=== PATIENT | male | born 1955 | race Caucasian/White ===

== ENCOUNTER 2017-04-28 13:00 | Outpatient (RCR) | payer BC, SELFPAY | END 2017-04-28 23:59 | LOC: PT 13:00 | PROVIDERS: PCP Physician Assistant; Visit Provider Internal Medicine | DX: Z95.5 Presence of coronary angioplasty implant and graft (principal); R55 Syncope and collapse | CPT/HCPCS: 93798 ==

== ENCOUNTER → 2017-05-17 14:25 | Outpatient (CLI) | payer BC, SELFPAY ==
[2017-05-17 18:50] LABS: Prostate Specific Ag, Diagnost 3.31 ng/mL (0.0-4.0)
== END ==
PROVIDERS: PCP Physician Assistant; Visit Provider Urology
DX: N40.1 Benign prostatic hyperplasia with lower urinary tract symptoms (principal); N13.8 Other obstructive and reflux uropathy
CPT/HCPCS: 36415; 84153

== ENCOUNTER → 2018-01-02 12:04 | Outpatient (CLI) | payer BC, SELFPAY ==
--- NOTE | 2018-01-02 12:08 | XR_ITS ---
XR chest 2V HISTORY: ITS.REASON: tobacco use, dyspnea ORDERING PHYSICIAN: Anthony Gonzalez MD PATIENT AGE: 62 years COMPARISON: 02/22/2017 FINDINGS: The cardiomediastinal silhouette and pulmonary vascularity are within normal limits. Hyperinflation with attenuation of the peripheral pulmonary vessels consistent with obstructive chronic bronchitis. No lobar consolidation or collapse.. Old right fifth rib fracture. No acute bony findings.. IMPRESSION: COPD, no change with no acute finding
== END ==
PROVIDERS: PCP Physician Assistant; Visit Provider Internal Medicine
DX: R06.00 Dyspnea, unspecified (principal); J44.9 Chronic obstructive pulmonary disease, unspecified; F17.200 Nicotine dependence, unspecified, uncomplicated; E78.4 Other hyperlipidemia; I11.9 Hypertensive heart disease without heart failure; I25.10 Atherosclerotic heart disease of native coronary artery without angina pectoris; I65.29 Occlusion and stenosis of unspecified carotid artery
CPT/HCPCS: 71046

== ENCOUNTER → 2018-05-10 12:16 | Outpatient (CLI) | payer BC, SELFPAY ==
[2018-05-11 17:19] LABS: PSA, Free 0.29 ng/mL; Prostate Specific Ag 1.3 ng/mL (0.0-4.0)
== END ==
PROVIDERS: Visit Provider Urology
DX: R97.20 Elevated prostate specific antigen [PSA] (principal); R39.89 Other symptoms and signs involving the genitourinary system
CPT/HCPCS: 36415; 84153; 84154

== ENCOUNTER → 2018-08-14 12:58 | Outpatient (CLI) | payer BC, SELFPAY ==
--- NOTE | 2018-08-14 13:00 | CI_ITS ---
Cerebrovascular Exam Indications: 433.10 Occlusion/stenosis of carotid artery without cerebral infarction. IMPRESSIONS 1. The bilateral vertebral arteries are patent with normal antegrade flow. 2. Study suggests less than 20% stenosis involving the right internal carotid artery and the left internal carotid artery. No change from the study of 03-Aug-2015. Carotid duplex study. Complete study and Doppler flow study including spectral analysis, color and fontenot scale imaging. Location: Vascular laboratory. Patient status: Outpatient. Tables: Arterial flow: + +--------+--------+ Location V sylalita V ed + +--------+--------+ Left CCA - distal 58.1cm/s 22cm/s + +--------+--------+ Left CCA - proximal 73.9cm/s 22cm/s + +--------+--------+ Left ICA - distal 52.6cm/s 22.8cm/s + +--------+--------+ Left ICA - mid 40.1cm/s 18.1cm/s + +--------+--------+ Left ICA - proximal 55.8cm/s 15.7cm/s + +--------+--------+ Left ECA 62.9cm/s -------- + +--------+--------+ Left vertebral 29.1cm/s -------- + +--------+--------+ Right CCA - distal 76.2cm/s 29.1cm/s + +--------+--------+ Right CCA - proximal 70.7cm/s 21.2cm/s + +--------+--------+ Right ICA - distal 58.9cm/s 26.7cm/s + +--------+--------+ Right ICA - mid 43.2cm/s 20.4cm/s + +--------+--------+ Right ICA - proximal 46.4cm/s 17.3cm/s + +--------+--------+ Right ECA 58.1cm/s -------- + +--------+--------+ Right vertebral 28.3cm/s -------- + +--------+--------+ Velocity ratios: + + + + + + Right, V sys Right, V ed Left, V sys Left, V ed + + + + + + Max ICA/dist CCA 0.77 0.92 0.96 1.04 + + + + + + (Report amended ) Electronically signed by: Sahq Le [id number]
== END ==
PROVIDERS: PCP Family Medicine; Visit Provider Internal Medicine
DX: E78.5 Hyperlipidemia, unspecified (principal); I11.9 Hypertensive heart disease without heart failure; I25.10 Atherosclerotic heart disease of native coronary artery without angina pectoris; I65.29 Occlusion and stenosis of unspecified carotid artery; J44.9 Chronic obstructive pulmonary disease, unspecified; F17.200 Nicotine dependence, unspecified, uncomplicated
CPT/HCPCS: 93880

== ENCOUNTER → 2019-01-15 09:30 | Outpatient (CLI) | payer BC, SELFPAY ==
[2019-01-15 10:09] LABS: INR 0.96 (0.9-1.1)
[2019-01-15 10:36] LABS: Alanine Aminotransferase 89 U/L (12-78); Albumin Level 3.6 gm/dL (3.4-5.0); Alkaline Phosphatase 103 U/L (46-116); Aspartate Amino Transferase 59 U/L (15-37); Bilirubin,Direct 0.3 mg/dL (0.0-0.2); Bilirubin,Indirect 0.5 mg/dL (0.0-0.9); Bilirubin,Total 0.8 mg/dL (0.2-1.0); Chol/HDL Ratio 1.5 (1-3.5); Cholesterol 98 mg/dL (140-200); HDL Cholesterol 67 mg/dL (27-67); LDL Cholesterol 24 mg/dL (0-130); Total Protein,Serum 6.6 gm/dL (6.4-8.2); Triglycerides 36 mg/dL (30-200); VLDL Cholesterol 7 mg/dL (0-40)
== END ==
PROVIDERS: Visit Provider Physician Assistant
DX: E78.5 Hyperlipidemia, unspecified (principal); I25.10 Atherosclerotic heart disease of native coronary artery without angina pectoris; I65.29 Occlusion and stenosis of unspecified carotid artery; R58 Hemorrhage, not elsewhere classified
CPT/HCPCS: 36415; 80061; 80076; 85610

== ENCOUNTER → 2019-05-28 12:12 | Outpatient (CLI) | payer BC, SELFPAY ==
[2019-05-28 14:03] LABS: Prostate Specific Ag Screen 1.7 ng/mL (0.0-4.0)
== END ==
PROVIDERS: Visit Provider Urology
DX: Z12.5 Encounter for screening for malignant neoplasm of prostate (principal)
CPT/HCPCS: 36415; G0103

== ENCOUNTER → 2020-01-07 13:45 | Outpatient (CLI) | payer BC, SELFPAY ==
--- NOTE | 2020-01-07 13:53 | XR_ITS ---
PROCEDURE: XR CHEST 2V CLINICAL HISTORY: dyspnea Shortness of air, smoker COMPARISON: CR CXR CHEST(2 VIEWS-NOT PORTABLE) from 04/14/2014 CR CXR CHEST(2 VIEWS-NOT PORTABLE) from 06/25/2015 CR CXR CHEST(2 VIEWS-NOT PORTABLE) from 02/22/2017 CR CXR2V XR chest 2V from 01/02/2018 FINDINGS: The cardiomediastinal silhouette and pulmonary vascularity are within normal limits. COPD. No lobar consolidation or collapse. Degenerative changes thoracic spine IMPRESSION: No change with no acute finding Dictated by: Shaq Le MD 01/07/2020 18:02 Shaq Le MD in [facility] 01/07/2020 18:02
== END ==
PROVIDERS: PCP Nurse Practitioner Family; Visit Provider Physician Assistant
DX: J44.9 Chronic obstructive pulmonary disease, unspecified (principal); F17.200 Nicotine dependence, unspecified, uncomplicated; I25.10 Atherosclerotic heart disease of native coronary artery without angina pectoris; I65.23 Occlusion and stenosis of bilateral carotid arteries; R06.09 Other forms of dyspnea; E78.2 Mixed hyperlipidemia; I11.9 Hypertensive heart disease without heart failure
CPT/HCPCS: 71046

== ENCOUNTER → 2020-07-07 13:52 | Outpatient (CLI) | payer BC, SELFPAY ==
[2020-07-07 16:55] LABS: Prostate Specific Ag Screen 1.3 ng/ml (0.0-4.0)
== END ==
PROVIDERS: Visit Provider Urology
DX: Z12.5 Encounter for screening for malignant neoplasm of prostate (principal)
CPT/HCPCS: 36415; G0103

== ENCOUNTER → 2021-02-10 11:24 | Outpatient (CLI) | payer BC, SELFPAY ==
--- NOTE | 2021-02-10 11:33 | CA_ITS ---
APPROVED REPORT EXAM: Comprehensive 2D, Doppler, and color-flow Echocardiogram Final Rail Cutter: Lyudmila Purcell CRT Ht: 5 ft 8 in Wt: 184lbs BSA: 1.97 BP: 116/78 mmHg Indications: COPD, Shortness of Breath, Fatigue, CAD, Hyperlipidemia, Hypertension/HDD, smoker, old SD, stent, smoker 2D Dimensions LVOT 1.98 cm (M/F) 1.5-2.5 LA Volume 28.70 mL LA Volume Index 14.60 mL/m2 (M/F) 16-34 M-Mode Dimensions RVDd 2.09 cm (0.9-2.6) LA Diam 3.07 cm (1.9-4.0) LVDd 4.39 cm (3.5-5.7) Ao Diam 4.30 cm (2.0-3.7) LVDs 2.62 cm (3.5-5.7) IVSd 2.01 cm (0.6-1.1) PWd 0.89 cm (0.6-1.1) EF (Teich) 71.20% FS 40.30% EDV (Teich) 87.20 mL TAPSE 2.22 (<1.7) ESV (Teich) 25.10 mL LV Diastology E Decel Time 263.00 (160-240 msec) E/A Ratio 0.96 MED E' 9.40 (< 7 cm/sec) MED A' 10.70 cm/s E'/MED E' Ratio 7.41 (>14) LAT E' 10.40 (<10 cm/sec) LAT A' 12.60 cm/s E/LAT E' Ratio 6.70 (>14) Aortic Valve AI PHT 413.00 ms AO Peak GR. 6.80 mmHg Mitral Valve MV A Velocity 73.00 (40-130 cm/s) E/A Ratio 0.96 MV Decel. Time 263.00 (160-240 ms) Pulmonary Valve PV Peak Velocity 162.00 (50-150 cm/s) Tricuspid Valve TR P. Velocity 139.00 cm/s RAP Estimate 10.00 mmHg RVSP 17.80 mmHg Left Ventricle Technically difficult study because of the patient factors and poor acoustic windows. Left atrium is mildly enlarged, left ventricle is normal size, mild concentric left ventricular hypertrophy, visually estimated ejection fraction 55% with no regional wall motion abnormality, Doppler evidence of impaired LV relaxation seen. Right Ventricle Right atrium and right ventricle are normal size and contractility. Aortic Valve Aortic valve is minimally thickened and fibrosed there is no aortic stenosis or aortic insufficiency. Mitral Valve Mitral valve grossly normal, there is trace mitral regurgitation. Tricuspid Valve Tricuspid valve grossly normal, there is trace tricuspid regurgitation, tricuspid regurgitation jet velocity is inadequate for calculation of the right ventricular systolic pressure. Pulmonic Valve Pulmonic valve is poorly visualized. Great Vessels Aortic root is normal size. Inferior vena cava is normal size with normal inspiratory collapse. Pericardium No significant pericardial effusion noted. Conclusion 1. Mildly enlarged left atrium, normal left ventricular size, mild concentric left ventricular hypertrophy, visually estimated ejection fraction 55% with no regional wall motion abnormality, Doppler evidence of impaired LV relaxation seen. 2. Trace mitral and tricuspid regurgitation. 3. No significant pericardial effusion noted 4. Inferior vena cava is normal size with normal inspiratory collapse. Electronically signed by : Hari Montiel MD 02/11/2021 15:31:44
[2021-02-10 12:46] LABS: Alanine Aminotransferase 65 U/L (12-78); Albumin Level 4.1 g/dl (3.5-5.0); Alkaline Phosphatase 114 U/L (38-126); Aspartate Amino Transferase 61 U/L (17-59); Bilirubin,Direct 0.5 mg/dl (0.0-0.4); Bilirubin,Indirect 0.6 mg/dL (0.0-0.9); Bilirubin,Total 1.1 mg/dl (0.2-1.3); Bilirubin,Unconjugated 0.5 mg/dL (0.0-1.1); Chol/HDL Ratio 1.3 (1-3.5); Cholesterol 111 mg/dl (140-200); HDL Cholesterol 83 mg/dl (40-60); Total Protein,Serum 6.9 g/dl (6.3-8.2); Triglycerides 59 mg/dl (30-150); VLDL Cholesterol 12 mg/dL (0-40)
[2021-02-10 13:01] LABS: Direct LDL Cholesterol < 30.00 mg/dL (100-129)
== END ==
PROVIDERS: PCP Nurse Practitioner Family; Visit Provider Nurse Practitioner Family
DX: R06.02 Shortness of breath (principal); E78.2 Mixed hyperlipidemia
CPT/HCPCS: 36415; 80061; 80076; 93306

== ENCOUNTER 2023-02-08 11:04 | Emergency (ER) | payer BC, SELFPAY ==
[2023-02-08 11:06] VITALS: BP 133/83; PULSE 80; RESP 18; TEMP 36.8; O2SAT 96; BMI 26.6
[2023-02-08 11:16] LABS: Microscopic, Urine URINE MICROSCOPIC (MICROSCOPIC)
[2023-02-08 11:19] LABS: Blood, Urine 3+ (Negative); Glucose,Urine (UA) TRACE (Negative); Ketones,Urine TRACE (Negative); Leukocyte Esterase,Urine TRACE (Negative); Nitrate,Urine POSITIVE (Negative); PH,Urine 6.5 (5.0-8.5); Protein,Urine 3+ (Negative); Specific Gravity, Urine 1.025 (1.005-1.030)
--- NOTE | 2023-02-08 11:20 | PC.NURSE ---
DR DANG AT BEDSIDE
[2023-02-08 11:25] LABS: Bilirubin,Urine 1+ (Negative)
[2023-02-08 11:26] LABS: Appearance,Urine Cloudy (Clear); Color,Urine Amber (Yellow)
--- NOTE | 2023-02-08 11:29 | [facility].EDGENADL ---
Discharge Plan Disposition Patient Disposition: Home, Self-Care Prescriptions Prescriptions: New cefdinir 300 mg capsule 300 mg PO BID 10 Days Qty: 20 0RF No Action tamsulosin [Flomax] 0.4 mg capsule,extended release 24hr 0.4 mg PO DAILY nitroglycerin 0.4 mg tablet, sublingual 0.4 mg SUBLINGUAL Q5M PRN (Reason: chest pain) Qty: 25 0RF aspirin [Adult Aspirin Regimen] 81 mg tablet,delayed release (DR/EC) 81 mg PO QDAY Qty: 90 3RF atorvastatin 40 mg tablet See Rx Instructions .ROUTE .COMPLEX Qty: 90 5RF Dose Instruction: Take 1 tablet by mouth once daily Rx Instructions: Take 1 tablet by mouth once daily metoprolol tartrate 25 mg tablet See Rx Instructions .ROUTE .COMPLEX Qty: 180 1RF Dose Instruction: Take 1 tablet by mouth twice daily Rx Instructions: Take 1 tablet by mouth twice daily lisinopril 5 mg tablet See Rx Instructions .ROUTE .COMPLEX Qty: 90 1RF Dose Instruction: Take 1 tablet by mouth once daily Rx Instructions: Take 1 tablet by mouth once daily Referrals Follow up/Referrals: Guy Haq MD [Primary Care Provider] - See instructions Activity Restrictions/Add. Instructions Additional Instructions/Restrictions: Call your family doctor to establish care for this visit to the emergency department and schedule follow-up within 48 hours to ensure improvement. If you have any worsening of your condition or any other concerning signs or symptoms, return to the emergency department or your primary care doctor for further evaluation. Cefdinir twice daily for 10 days Clinical Impressions Clinical Impression: Urinary tract infection Qualifiers: Urinary tract infection type: site unspecified Hematuria presence: with hematuria Qualified Code(s): N39.0 - Urinary tract infection, site not specified Instructions Patient Instructions: DI for Urinary Tract Infection (UTI), DI for Urinary Tract Infection in Children Discharge ED Provider: Bhavin Vigil General Adult HPI General Chief complaint: Urogenital-Male Stated complaint: BLOOD IN URINE Time Seen by Provider: 02/08/23 11:06 Mode of Arrival: Ambulatory Source of Information: Patient Limitations: No Limitations Description of Symptoms (Recalled from ER Triage Doc. by RN): PT REPORTS FREQUENT URINATION X 2-3 DAYS. BLOOD IN URINE THIS AM. DENIES FEVER OR CHILLS. History of Present Illness HPI narrative: 67-year-old male with history of hypertension, hyperlipidemia, COPD still currently smoking and not on home oxygen, BPH currently following with urology presenting with hematuria. Patient states that he started having reddish-pink urine today, 02/08. Last saw urology about a week and a half prior to this visit and was told everything looked fine, per his account. Denies fevers or chills, nausea vomiting, abdominal pain, flank pain, but has had urinary frequency, urgency, and spasming when he tries to go. Having small amounts of urine every time he tries to urinate. No history of UTI. Related Data Home Medications Medication Instructions Recorded Confirmed tamsulosin 0.4 mg capsule (Flomax) 0.4 mg PO DAILY 07/11/17 11/15/22 Previous Rx's Medication Instructions Recorded aspirin 81 mg tablet,delayed 81 mg PO QDAY #90 tabs 04/25/18 release (Adult Aspirin Regimen) nitroglycerin 0.4 mg sublingual 0.4 mg sublingual Q5M PRN chest 07/27/21 tablet pain #25 tabs atorvastatin 40 mg tablet See Rx Instructions .Route 11/15/21 .COMPLEX #90 tabs lisinopril 5 mg tablet See Rx Instructions .Route 11/29/22 .COMPLEX #90 tabs metoprolol tartrate 25 mg tablet See Rx Instructions .Route 11/29/22 .COMPLEX #180 tabs cefdinir 300 mg capsule 300 mg PO BID 10 days #20 caps 02/08/23 Allergies Allergy/AdvReac Type Severity Reaction Status Date / Time Penicillins Allergy Intermediate I-RASH Verified 11/15/22 10:24 [facility] Disclaimer: The information contained in this section m
[2023-02-08 11:32] LABS: Bacteria,Urine Trace /lpf; RBC,Urine TNTC #/hpf (0-3)
[2023-02-08 11:34] VITALS: BP 130/80; PULSE 66; O2SAT 95
--- NOTE | 2023-02-08 11:44 | PC.NURSE ---
DR DANG AT BEDSIDE TO UPDATE PT AND FAMILY ON POC
[2023-02-08 11:55] VITALS: BP 135/88; PULSE 75; RESP 18; TEMP 36.6; O2SAT 95
== END 2023-02-08 11:55 | disposition home or self-care (01) ==
PROVIDERS: Emergency Provider Emergency Medicine; PCP Internal Medicine Adolescent Medicine
DX: N39.0 Urinary tract infection, site not specified (principal); R31.9 Hematuria, unspecified; F17.210 Nicotine dependence, cigarettes, uncomplicated; J44.9 Chronic obstructive pulmonary disease, unspecified; I10 Essential (primary) hypertension; E78.5 Hyperlipidemia, unspecified
CPT/HCPCS: 81001; 99283